=== PATIENT | male | born 1955 | race African-American/Black ===

== ENCOUNTER → 2016-11-24 | Outpatient (CLI) | payer BC ==
[2016-11-24 10:37] LABS: ALANINE AMINOTRANSFERASE 34 U/L (21-72); ALBUMIN 4.8 g/dL (3.5-5.0); ALKALINE PHOSPHATASE 53 U/L (38-126); ASPARTATE AMINO TRANSFERASE 29 U/L (17-59); BILIRUBIN,DIRECT 0.1 mg/dL (0.0-0.4); BILIRUBIN,TOTAL 0.8 mg/dL (0.2-1.3); CHOLESTEROL 159.91 mg/dL (0-200); Direct HDL 42 mg/dL (>40); TOTAL PROTEIN 7.5 g/dL (6.3-8.2); TRIGLYCERIDES 227 mg/dL (<150)
[2016-11-24 10:48] LABS: DIRECT LDL 56 mg/dL (<100)
[2016-11-24 10:52] LABS: VLDL CHOLESTEROL 45.4 mg/dL (10-31)
== END ==
LOC: OD 09:10
PROVIDERS: ATTEND Internal Medicine Cardiovascular Disease
DX: E78.2 Mixed hyperlipidemia (principal); Z79.899 Other long term (current) drug therapy
CPT/HCPCS: 36415; 80061; 80076

== ENCOUNTER → 2017-05-27 | Outpatient (CLI) | payer BC ==
[2017-05-27 09:05] LABS: ALANINE AMINOTRANSFERASE 33 U/L (21-72); ALBUMIN 4.5 g/dL (3.5-5.0); ALKALINE PHOSPHATASE 53 U/L (38-126); ANION GAP 11 (5-19); ASPARTATE AMINO TRANSFERASE 25 U/L (17-59); BILIRUBIN,DIRECT 0.3 mg/dL (0.0-0.4); BILIRUBIN,TOTAL 0.8 mg/dL (0.2-1.3); BLOOD UREA NITROGEN 18 mg/dL (7-20); CALCIUM 10.3 mg/dL (8.4-10.2); CARBON DIOXIDE 29 mmol/L (22-30); CHLORIDE 100 mmol/L (98-107); CHOLESTEROL 183.49 mg/dL (0-200); CREATININE RESULT 1.14 mg/dL (0.52-1.25); Direct HDL 39 mg/dL (>40); GLUCOSE 98 mg/dL (75-110); POTASSIUM 4.5 mmol/L (3.6-5.0); SODIUM 140.3 mmol/L (137-145); TOTAL PROTEIN 7.2 g/dL (6.3-8.2); TRIGLYCERIDES 358 mg/dL (<150)
[2017-05-27 09:16] LABS: DIRECT LDL 44 mg/dL (<100)
[2017-05-27 09:19] LABS: VLDL CHOLESTEROL 71.6 mg/dL (10-31)
== END ==
LOC: OD 08:04
PROVIDERS: ATTEND Internal Medicine Cardiovascular Disease
DX: E78.2 Mixed hyperlipidemia (principal); Z79.899 Other long term (current) drug therapy
CPT/HCPCS: 36415; 80048; 80061; 80076

== ENCOUNTER → 2017-06-10 | Outpatient (CLI) | payer BC ==
--- NOTE | 2017-06-10 09:01 | EKG REPORT ---
SEVERITY:- ABNORMAL ECG - SINUS RHYTHM LVH WITH IVCD, LAD AND SECONDARY REPOL ABNRM : Confirmed by: Tangela Denton MD 10-Jun-2017 08:59:54
== END ==
LOC: OD 08:08
PROVIDERS: ATTEND Internal Medicine Cardiovascular Disease
DX: I10 Essential (primary) hypertension (principal)
CPT/HCPCS: 93005; 93010

== ENCOUNTER → 2017-10-26 | Outpatient (CLI) | payer BC ==
[2017-10-26 08:56] LABS: ANION GAP 11 (5-19); BLOOD UREA NITROGEN 21 mg/dL (7-20); CALCIUM 10.3 mg/dL (8.4-10.2); CARBON DIOXIDE 28 mmol/L (22-30); CHLORIDE 103 mmol/L (98-107); CHOLESTEROL 133.42 mg/dL (0-200); GLUCOSE 99 mg/dL (75-110); POTASSIUM 4.7 mmol/L (3.6-5.0); TRIGLYCERIDES 103 mg/dL (<150)
[2017-10-26 09:07] LABS: DIRECT LDL 54 mg/dL (<100)
== END ==
LOC: OD 08:11
PROVIDERS: ATTEND Internal Medicine Cardiovascular Disease
DX: E78.2 Mixed hyperlipidemia (principal); I10 Essential (primary) hypertension; R00.2 Palpitations
CPT/HCPCS: 36415; 80048; 80061

== ENCOUNTER → 2017-11-25 | Outpatient (CLI) | payer BC ==
[2017-11-25 09:46] LABS: ANION GAP 10 (5-19); BLOOD UREA NITROGEN 20 mg/dL (7-20); CARBON DIOXIDE 27 mmol/L (22-30); CHLORIDE 105 mmol/L (98-107); GLUCOSE 99 mg/dL (75-110); POTASSIUM 4.5 mmol/L (3.6-5.0); SODIUM 142.2 mmol/L (137-145)
== END ==
LOC: OD 08:18
PROVIDERS: ATTEND Internal Medicine Cardiovascular Disease
DX: I10 Essential (primary) hypertension (principal); E83.52 Hypercalcemia
CPT/HCPCS: 36415; 80048

== ENCOUNTER → 2017-12-07 | Outpatient (CLI) | payer BC ==
--- NOTE | 2017-12-08 19:12 | XCELERA REPORT ---
[address] [address] Transthoracic Echocardiogram Report Name: JOAQUIM CORTEZ Age: 62 yrs Gender: Male : 1955 Patient Status: Outpatient Patient Location: Study Date: 12/07/2017 02:03 PM Height: 68 in Weight: 156 lb BSA: 1.8 m2 Reason For Study: HOCM Ordering Physician: DEWEY SHERMAN Performed By: Suzy Leary Interpretation Summary Normal AV. Normal MV except mild MAC, and mild MR with no MVP/no MS. Asynmetric septal hypertrophy,( IVS 18/PW11) with LVEF 72%, and stage I LVDD with no RWMA, and no LVOT gradient, ie no oulet obstruction RH poorly seen Mild TR with RVSP about 32 mmHg, borderline elevated. MMode/2D Measurements & Calculations RVDd: 2.4 cm LVIDd: 4.5 cm FS: 45.1 % Ao root diam: IVSd: 1.1 cm LVIDs: 2.5 cm EDV(Teich): 2.6 cm LVPWd: 0.85 cm 93.4 ml Ao root area: ESV(Teich): 21.9 ml 5.1 cm2 EF(Teich): LA dimension: 76.5 % 2.8 cm LVLd ap4: 9.7 cm SV(MOD-sp4): 82.0 ml LA A2Cs: LA A4Cs: 16.0 cm2 EDV(MOD-sp4): 16.2 cm2 117.0 ml LVLs ap4: 7.3 cm ESV(MOD-sp4): 35.0 ml EF(MOD-sp4): 70.1 % LA length: 5.0 cm LA Vol Index (BP): LA Volume: 23.8 ml/m2 43.8 ml Doppler Measurements & Calculations MV E max barrett: MV P1/2t max barrett: Ao V2 max: LV V1 max P.2 cm/sec 61.7 cm/sec 140.7 cm/sec 6.1 mmHg MV A max barrett: MV P1/2t: 98.3 msec Ao max PG: LV V1 max: 66.6 cm/sec 7.9 mmHg 123.9 cm/sec MV E/A: 0.93 MVA(P1/2t): 2.2 cm2 MV dec slope: 183.9 cm/sec2 PA V2 max: PI end-d barrett: TR max barrett: 109.1 cm/sec 88.2 cm/sec 266.0 cm/sec PA max PG: TR max P.8 mmHg 28.3 mmHg Left Ventricle There is moderate asymmetric left ventricular hypertrophy. The echo findings are consistent with hypertrophic cardiomyopathy. IVS 17-18mm, PW 11 mm. The left ventricular ejection fraction is normal. Doppler measurements suggest impaired left ventricular relaxation, which is associated with grade I/IV or mild diastolic dysfunction. No regional wall motion abnormalities noted. There is no thrombus. Right Ventricle The right ventricle is normal size. Atria The right atrium is normal in size. The left atrial size is normal. Mitral Valve The mitral valve leaflets appear normal. There is no evidence of stenosis, fluttering, or prolapse. There is mild mitral annular calcification. There is no evidence of mitral valve prolapse. There is no mitral valve stenosis. There is a mild amount of mitral regurgitation. Aortic Valve The aortic valve is normal in structure and functions normally. The aortic valve is trileaflet. The aortic valve opens well. There is no aortic valvular vegetation. There is no aortic valve stenosis. No aortic regurgitation is present. Tricuspid Valve The tricuspid is normal in structure and function. There is a mild amount of tricuspid regurgitation. Right ventricular systolic pressure is estimated to be within upper limit of normal. Best estimated RVSP is approximately 32 mm/Hg. Pulmonic Valve The pulmonic valve is not well visualized. There is a mild amount of pulmonic regurgitation. Great Vessels The aortic root is normal size. Effusions There is no pericardial effusion. I WMSI = 1.00 % Normal = 100 Segments Size X - Cannot 1 - Normal 2 - 3 - Akinetic4 - 1-2 small Interpret Hypokinetic Dyskinetic 3-5 moderate 5 - 6-14 large Aneurysmal 15-16 diffuse : DEWEY SHERMAN > Dewey Sherman
== END ==
LOC: SP 13:32
PROVIDERS: ATTEND Internal Medicine Cardiovascular Disease
DX: I42.1 Obstructive hypertrophic cardiomyopathy (principal)
CPT/HCPCS: 93306

== ENCOUNTER 2018-09-28 17:42 | Emergency (ER) | payer BC ==
--- NOTE | 2018-09-28 19:28 | ER Document Report ---
ED Medical Screen (RME) - General Chief Complaint: Near Syncope Stated Complaint: SYNCOPAL EPISODE Time Seen by Provider: 09/28/18 19:16 Primary Care Provider: DEWEY GOMEZ MD [Primary Care Provider] - Follow up as needed Mode of Arrival: Ambulatory Information source: Patient Notes: This is a 63-year-old man with a history of hypertension and has a recent episode of cough, sinus congestion, URI symptoms. He was treated with an antibiotic and prednisone and developed intractable hiccups. He was given a muscle relaxer and a medicine for hiccups (they do not know the name of the medicines). Patient states he filled the medicine today. He states that after taking the medicines, he was weak and felt faint. His brother had a helped him to the bathroom and while he was urinating he had a syncopal episode. The patient is accompanied by his mother states that after taking the medicine he seemed a little confused and very weak. Patient presents after the syncopal episode. He was brought in by EMS. TRAVEL OUTSIDE OF THE [place] IN LAST 30 DAYS: No - Related Data Allergies/Adverse Reactions: prednisone [Prednisone] Allergy (Severe, Verified 09/28/18 17:43) Hiccups gemfibrozil [From Lopid] Allergy (Verified 09/28/18 17:43) Past Medical History - Social History Frequency of alcohol use: None - Past Medical History Cardiac Medical History: Reports: Hx Hypertension Denies: Hx Coronary Artery Disease, Hx Heart Attack Pulmonary Medical History: Reports: Hx Bronchitis Denies: Hx Asthma, Hx COPD, Hx Pneumonia Neurological Medical History: Denies: Hx Cerebrovascular Accident, Hx Seizures Renal/ Medical History: Denies: Hx Peritoneal Dialysis Musculoskeltal Medical History: Reports Hx Arthritis Past Surgical History: Reports: Hx Abdominal Surgery - hernia as an , Hx Herniorrhaphy - AN INFANT - Immunizations Hx Diphtheria, Pertussis, Tetanus Vaccination: Yes - 2011 Physical Exam - Vital signs Vitals: Temp Pulse Resp BP Pulse Ox 97.5 F 63 16 108/55 L 96 09/28/18 17:51 09/28/18 17:51 09/28/18 17:51 09/28/18 17:51 09/28/18 17:51 Course - Vital Signs Vital signs: Temp Pulse Resp BP Pulse Ox 97.5 F 63 16 108/55 L 96 09/28/18 17:51 09/28/18 17:51 09/28/18 17:51 09/28/18 17:51 09/28/18 17:51 Doctor's Discharge - Discharge Referrals: DEWEY GOMEZ MD [Primary Care Provider] - Follow up as needed
--- NOTE | 2018-09-28 19:45 | EKG REPORT ---
SEVERITY:- ABNORMAL ECG - SINUS RHYTHM PROBABLE LEFT ATRIAL ABNORMALITY LVH WITH IVCD, LAD AND SECONDARY REPOL ABNRM : Confirmed by: Tangela Denton MD 28-Sep-2018 19:44:46
--- NOTE | 2018-09-28 19:57 | RADIOLOGY REPORT (SQ) ---
EXAM DESCRIPTION: CHEST SINGLE VIEW COMPLETED DATE/TIME: 09/28/2018 7:46 pm REASON FOR STUDY: syncope COMPARISON: None. EXAM PARAMETERS: NUMBER OF VIEWS: One view. TECHNIQUE: Single frontal radiographic view of the chest acquired. RADIATION DOSE: NA LIMITATIONS: None. FINDINGS: LUNGS AND PLEURA: No opacities, masses or pneumothorax. No pleural effusion. MEDIASTINUM AND HILAR STRUCTURES: No masses. Contour normal. HEART AND VASCULAR STRUCTURES: Heart normal in size. Normal vasculature. BONES: No acute findings. HARDWARE: None in the chest. OTHER: No other significant finding. IMPRESSION: NO ACUTE RADIOGRAPHIC FINDING IN THE CHEST. TECHNICAL DOCUMENTATION: JOB ID: [id number] [employer]- All Rights Reserved Reading location - IP/workstation name: [email or web address]
[2018-09-28 20:42] LABS: ABSOLUTE BASOPHILS # (AUTO) 0.1 10^3/uL (0.0-0.2); ABSOLUTE LYMPHOCYTES (AUTO) 2.2 10^3/uL (0.5-4.7); ABSOLUTE NEUT (AUTO) 9.7 10^3/uL (1.7-8.2); BASOPHILS % (AUTO) 0.7 % (0-2); EOSINOPHILS % (AUTO) 0.2 % (0-6); HEMATOCRIT 40.1 % (37.9-51.0); HEMOGLOBIN 13.3 g/dL (13.5-17.0); LYMPHOCYTES % (AUTO) 17.2 % (13-45); MEAN CORPUSCULAR HEMOGLOBIN 29.3 pg (27.0-33.4); MEAN CORPUSCULAR HGB CONC 33.2 g/dL (32.0-36.0); MEAN CORPUSCULAR VOLUME 88 fl (80-97); MONOCYTES % (AUTO) 7.9 % (3-13); PLATELET COUNT 202 10^3/uL (150-450); RED BLOOD COUNT 4.55 10^6/uL (4.35-5.55); RED CELL DISTRIBUTION WIDTH 13.6 % (11.5-14.0); TOTAL CELLS COUNTED % (AUTO) 100 %; WHITE BLOOD COUNT 13.1 10^3/uL (4.0-10.5)
[2018-09-28 21:01] LABS: ALANINE AMINOTRANSFERASE 23 U/L (21-72); ALBUMIN 4.1 g/dL (3.5-5.0); ALKALINE PHOSPHATASE 39 U/L (38-126); ANION GAP 6 (5-19); ASPARTATE AMINO TRANSFERASE 19 U/L (17-59); BILIRUBIN,DIRECT 0.2 mg/dL (0.0-0.4); BILIRUBIN,TOTAL 0.5 mg/dL (0.2-1.3); BLOOD UREA NITROGEN 26 mg/dL (7-20); CALCIUM 9.6 mg/dL (8.4-10.2); CARBON DIOXIDE 31 mmol/L (22-30); CHLORIDE 99 mmol/L (98-107); GLUCOSE 99 mg/dL (75-110); POTASSIUM 4.1 mmol/L (3.6-5.0); SODIUM 136.3 mmol/L (137-145); TOTAL PROTEIN 6.5 g/dL (6.3-8.2)
--- NOTE | 2018-09-28 23:09 | ER Document Report ---
ED Syncope and Near Syncope - General Chief Complaint: Near Syncope Stated Complaint: SYNCOPAL EPISODE Time Seen by Provider: 09/28/18 23:08 Primary Care Provider: DEWEY GOMEZ MD [EMERITUS] - Follow up as needed Mode of Arrival: Ambulatory Notes: Patient is a 63-year-old man with no significant past medical history who presents after one episode of near syncope earlier today. Patient reports that he has had congestion and hiccups since last week, presented to his primary doctor today and was prescribed Thorazine for hiccups, took the first dose when he got home. A short time later he stood and felt lightheaded, was helped to the bathroom by his brother so he could urinate, while doing this he felt dizzy and fell to the ground but did not completely pass out. Patient reports that t his episode lasted for a few seconds and he felt back to his normal self, however he was still "woozy." Currently the patient has no complaints and feels to be at his normal self. He denies fevers or chills, no cough or congestion currently, no nausea or vomiting, no chest pain. TRAVEL OUTSIDE OF THE [place] IN LAST 30 DAYS: No - HPI Patient complains to provider of: Nearly fainting Episode witnessed (by whom): Yes Symptoms prior to episode: Dizziness, Lightheaded Position/Activity at time of episode: Standing Quality of pain: No pain Severity: Mild Pain Level: Denies Context: [place] faint Injury location: None Current symptoms: None/feels back to normal Similar symptoms previously: No Recently seen / treated by doctor: No - Related Data Allergies/Adverse Reactions: prednisone [Prednisone] Allergy (Severe, Verified 09/28/18 17:43) Hiccups gemfibrozil [From Lopid] Allergy (Verified 09/28/18 17:43) Past Medical History - General Information source: Patient, Relative - Social History Smoking Status: Current Some Day Smoker Chew tobacco use (# tins/day): No Frequency of alcohol use: None Drug Abuse: None Lives with: Family Family History: Reviewed & Not Pertinent Patient has suicidal ideation: No Patient has homicidal ideation: No - Past Medical History Cardiac Medical History: Reports: Hx Hypertension Denies: Hx Coronary Artery Disease, Hx Heart Attack Pulmonary Medical History: Reports: Hx Bronchitis Denies: Hx Asthma, Hx COPD, Hx Pneumonia EENT Medical History: Reports: None Neurological Medical History: Reports: None. Denies: Hx Cerebrovascular Accident, Hx Seizures Endocrine Medical History: Reports: None Renal/ Medical History: Reports: None. Denies: Hx Peritoneal Dialysis Malignancy Medical History: Reports None GI Medical History: Reports: None Musculoskeletal Medical History: Reports Hx Arthritis Skin Medical History: Reports None Psychiatric Medical History: Reports: None Traumatic Medical History: Reports: None Infectious Medical History: Reports: None Past Surgical History: Reports: Hx Abdominal Surgery - hernia as an , Hx Herniorrhaphy - AN INFANT - Immunizations Immunizations up to date: Yes Hx Diphtheria, Pertussis, Tetanus Vaccination: Yes - 2011 Review of Systems - Review of Systems Constitutional: No symptoms reported EENT: No symptoms reported Cardiovascular: No symptoms reported Respiratory: No symptoms reported Gastrointestinal: No symptoms reported Genitourinary: No symptoms reported Male Genitourinary: No symptoms reported Musculoskeletal: No symptoms reported Skin: No symptoms reported Hematologic/Lymphatic: No symptoms reported Neurological/Psychological: See HPI, Lost consciousness -: Yes All other systems reviewed and negative Physical Exam - Vital signs Vitals: Temp Pulse Resp BP Pulse Ox 97.5 F 63 16 108/55 L 96 09/28/18 17:51 09/28/18 17:51 09/28/18 17:51 09/28/18 17:51 09/28/18 17:51 Interpretation: Normal - Notes Notes: Well-appearing in no acute distress - General General appearance: Appears well, Alert - HEENT Head: Normocephalic, Atraumatic Eyes: Normal Pupils: PERRL - Respiratory Respiratory status: No respiratory distress Chest status: Nontender Breath sounds: Normal Chest palpation: Normal - Cardiovascular Rhythm: Regular Heart sounds: Normal auscultation Murmur: No - Abdominal Inspection: Normal Distension: No distension Bowel sounds: Normal Tenderness: Nontender Organomegaly: No organomegaly - Rectal Notes: Deferred - Genitourinary Notes: Deferred - Back Back: Normal, Nontender - Extremities General upper extremity: Normal inspection, Nontender, Normal color, Normal ROM, Normal temperature General lower extremity: Normal inspection, Nontender, Normal color, Normal ROM, Normal temperature, Normal weight bearing. No: Miguelito's sign - Neurological Neuro grossly intact: Yes Cognition: Normal Orientation: AAOx4 [place] Coma Scale Eye Opening: Spontaneous [place] Coma Scale Verbal: Oriented Ari Coma Scale Motor: Obeys Commands Ari Coma Scale Total: 15 Speech: Normal Motor strength normal: LUE, RUE, LLE, RLE Sensory: Normal - Psychological Associated symptoms: Normal affect, Normal mood - Skin Skin Temperature: Warm Skin Moisture: Dry Skin Color: Normal Course - Re-evaluation Re-evalutation: 09/29/18 00:02 Labs and urinalysis are normal, head CT is negative. Patient is nonfocal and has a normal appearance on exam. Most likely the patient had a vagal response t hat was exacerbated by his use of Thorazine for the first time. Patient was cautioned to use the medication only as needed and to not mix the medication with any other new substances including alcohol. Patient will be discharged home with return precautions and follow-up. Both the patient and his family members at bedside voices understanding and agreeing with the plan. - Vital Signs Vital signs: Temp Pulse Resp BP Pulse Ox 97.5 F 63 17 124/78 99 09/28/18 17:51 09/28/18 17:51 09/29/18 00:01 09/29/18 00:01 09/29/18 00:01 - Laboratory Result Diagrams: 09/28/18 20:32 09/28/18 20:32 Laboratory results interpreted by me: 09/28/18 09/28/18 20:32 20:32 WBC 13.1 H Hgb 13.3 L Absolute Neutrophils 9.7 H Sodium 136.3 L Carbon Dioxide 31 H BUN 26 H Creatinine 1.31 H Est GFR (Non-Af Amer) 55 L - Diagnostic Test Radiology reviewed: Image reviewed, Reports reviewed - EKG Interpretation by Ak EKG shows normal: Sinus rhythm Rate: Normal Rhythm: NSR [place]/QRS: LBBB Voltage: No: Increased voltage, Consistant with LVH, Decreased voltage, Throu ghout, Limb leads Heart block present: No: 1st Degree, Mobitz 1, Mobitz 2, CHB (3rd degree block) When compared to previous EKG there are: No significant change Discharge - Discharge Clinical Impression: Vasovagal near syncope Condition: Good Disposition: HOME, SELF-CARE Instructions: Near Syncopal Episode ([facility]) Additional Instructions: Please follow-up with your regular physician as needed. Return to the hospital if you experience confusion, weakness, vision changes, chest pain, or have any other concerning symptom. Referrals: DEWEY GOMEZ MD [EMERITUS] - Follow up as needed Print Language: Wolof
[2018-09-29 00:37] VITALS: BP 124/78
== END 2018-09-29 01:52 | disposition home or self-care (01) ==
LOC: ER 17:42
DX: R55 Syncope and collapse (principal); R42 Dizziness and giddiness; F17.200 Nicotine dependence, unspecified, uncomplicated; I10 Essential (primary) hypertension
CPT/HCPCS: 36415; 71045; 80053; 85025; 93005; 93010; 99284

== ENCOUNTER → 2019-03-17 | Outpatient (CLI) | payer BC ==
[2019-03-17 09:17] LABS: CHOLESTEROL 139.87 mg/dL (0-200); TRIGLYCERIDES 154 mg/dL (<150)
[2019-03-17 09:19] LABS: ALANINE AMINOTRANSFERASE 35 U/L (21-72); ALBUMIN 4.3 g/dL (3.5-5.0); ALKALINE PHOSPHATASE 46 U/L (38-126); ANION GAP 9 (5-19); ASPARTATE AMINO TRANSFERASE 34 U/L (17-59); BILIRUBIN,DIRECT 0.2 mg/dL (0.0-0.4); BILIRUBIN,TOTAL 0.6 mg/dL (0.2-1.3); BLOOD UREA NITROGEN 26 mg/dL (7-20); CALCIUM 9.9 mg/dL (8.4-10.2); CARBON DIOXIDE 28 mmol/L (22-30); CHLORIDE 103 mmol/L (98-107); GLUCOSE 97 mg/dL (75-110); POTASSIUM 4.7 mmol/L (3.6-5.0); SODIUM 139.9 mmol/L (137-145); TOTAL PROTEIN 6.8 g/dL (6.3-8.2)
[2019-03-17 09:27] LABS: DIRECT LDL 65 mg/dL (<100)
[2019-03-17 09:33] LABS: VLDL CHOLESTEROL 30.8 mg/dL (10-31)
== END ==
LOC: OD 08:05
PROVIDERS: ATTEND Internal Medicine Cardiovascular Disease
DX: E78.2 Mixed hyperlipidemia (principal); I10 Essential (primary) hypertension; Z79.899 Other long term (current) drug therapy
CPT/HCPCS: 36415; 80048; 80061; 80076

== ENCOUNTER → 2019-06-16 | Outpatient (CLI) | payer BC ==
[2019-06-16 09:23] LABS: ALBUMIN 4.4 g/dL (3.5-5.0); ALKALINE PHOSPHATASE 45 U/L (38-126); ANION GAP 9 (5-19); ASPARTATE AMINO TRANSFERASE 36 U/L (17-59); BILIRUBIN,DIRECT 0.2 mg/dL (0.0-0.4); BILIRUBIN,TOTAL 0.4 mg/dL (0.2-1.3); BLOOD UREA NITROGEN 28 mg/dL (7-20); CARBON DIOXIDE 28 mmol/L (22-30); CHLORIDE 101 mmol/L (98-107); CHOLESTEROL 138.63 mg/dL (0-200); GLUCOSE 101 mg/dL (75-110); POTASSIUM 4.5 mmol/L (3.6-5.0); TOTAL PROTEIN 7.1 g/dL (6.3-8.2); TRIGLYCERIDES 116 mg/dL (<150)
[2019-06-16 09:34] LABS: DIRECT LDL 67 mg/dL (<100)
== END ==
LOC: OD 08:00
PROVIDERS: ATTEND Physician Assistant
DX: I10 Essential (primary) hypertension (principal); E78.2 Mixed hyperlipidemia; Z79.899 Other long term (current) drug therapy
CPT/HCPCS: 36415; 80048; 80061; 80076

== ENCOUNTER → 2019-09-23 | Outpatient (CLI) | payer BC ==
--- NOTE | 2019-09-23 21:33 | EKG REPORT ---
SEVERITY:- ABNORMAL ECG - SINUS RHYTHM MULTIPLE VENTRICULAR PREMATURE COMPLEXES MULT INTERPOLATED VENT PREMATURE COMPLEXES LEFT ATRIAL ABNORMALITY LVH WITH SECONDARY REPOLARIZATION ABNORMALITY ABNORMAL T, PROBABLE ISCHEMIA, LATERAL LEADS : Confirmed by: Tangela Denton MD 23-Sep-2019 21:32:54
== END ==
LOC: OD 10:22
PROVIDERS: ATTEND Physician Assistant
DX: R07.9 Chest pain, unspecified (principal)
CPT/HCPCS: 93005; 93010

== ENCOUNTER → 2019-10-06 | Outpatient (CLI) | payer BC ==
--- NOTE | 2019-10-06 19:57 | XCELERA REPORT ---
[address] [address] Transthoracic Echocardiogram Report Name: JOAQUIM CORTEZ Age: 64 yrs Gender: Male : 1955 Patient Status: Outpatient Patient Location: SP Study Date: 10/06/2019 02:00 PM Height: 68 in Weight: 160 lb BSA: 1.9 m2 Reason For Study: CP Ordering Physician: DEWEY SHERMAN Performed By: Juan Whitmore Interpretation Summary Multiple PVCs during acquisition. Poor quality study, measurements made in the wrong part of cardiac cycle. (student) Minimal posterior pericardial effusion. AV is 3 cusps, min sclerosis, no , no AR. Mild Mitral annular calcification, no MVP, no MS, mod MR with normal LA size by M-mode, no Biplane LA measured,. Mod concentric LVH IVS>17mm, PW>13 mm. no LV enlargement, LVEF 65-70% (visual) with LV diastolic dysfunction, and segmental wall motion abnormalities noted as in pictorals =inferior wall. RV poorly seen trace TR with no pulm hypertension, RVSP 30mm Hg. Trace NH. No ASD. MMode/2D Measurements & Calculations RVDd: 2.9 cm LVIDd: 4.8 cm FS: 41.1 % Ao root diam: 3.0 cm IVSd: 1.1 cm LVIDs: 2.8 cm EDV(Teich): 105.3 ml LVPWd: 0.93 cm ESV(Teich): 29.6 ml Ao root area: 6.9 cm2 LA dimension: 3.8 cm EF(Teich): 71.9 % Doppler Measurements & Calculations Ao V2 max: LV V1 max PG: PA V2 max: PI end-d barrett: 109.7 cm/sec 5.0 mmHg 81.9 cm/sec 99.1 cm/sec Ao max P.8 mmHg LV V1 max: PA max P.3 cm/sec 2.7 mmHg LV dP/dt: 1010 mmHg/s TR max barrett: 257.4 cm/sec TR max P.5 mmHg I WMSI = 1.38 % Normal = 75 Segments Size X - Cannot 2 - 4 - 1-2 small Interpret 1 - Normal Hypokinetic 3 - AkineticDyskinetic 3-5 moderate 5 - 6-14 large Aneurysmal 15-16 diffuse : JASON, Dewey Cardona
== END ==
LOC: SP 13:38
PROVIDERS: ATTEND Internal Medicine Cardiovascular Disease
DX: R07.89 Other chest pain (principal); I10 Essential (primary) hypertension
CPT/HCPCS: 93306

== ENCOUNTER → 2019-12-16 | Outpatient (CLI) | payer BC ==
[2019-12-16 08:57] LABS: ALBUMIN 4.5 g/dL (3.5-5.0); ALKALINE PHOSPHATASE 46 U/L (38-126); ANION GAP 5 (5-19); ASPARTATE AMINO TRANSFERASE 22 U/L (17-59); BILIRUBIN,DIRECT 0.2 mg/dL (0.0-0.4); BILIRUBIN,TOTAL 0.3 mg/dL (0.2-1.3); BLOOD UREA NITROGEN 12 mg/dL (7-20); CALCIUM 9.9 mg/dL (8.4-10.2); CARBON DIOXIDE 30 mmol/L (22-30); CHLORIDE 100 mmol/L (98-107); CHOLESTEROL 155.84 mg/dL (0-200); GLUCOSE 105 mg/dL (75-110); POTASSIUM 4.6 mmol/L (3.6-5.0); TOTAL PROTEIN 7.1 g/dL (6.3-8.2); TRIGLYCERIDES 238 mg/dL (<150)
[2019-12-16 09:08] LABS: DIRECT LDL 69 mg/dL (<100)
[2019-12-16 09:12] LABS: VLDL CHOLESTEROL 47.6 mg/dL (10-31)
== END ==
LOC: OD 08:06
PROVIDERS: ATTEND Physician Assistant
DX: E78.2 Mixed hyperlipidemia (principal); I10 Essential (primary) hypertension; Z79.899 Other long term (current) drug therapy
CPT/HCPCS: 36415; 80048; 80061; 80076

== ENCOUNTER → 2020-05-10 | Outpatient (CLI) | payer MEDICARE, BC ==
[2020-05-10 09:14] LABS: ALBUMIN 4.3 g/dL (3.5-5.0); ALKALINE PHOSPHATASE 43 U/L (38-126); ANION GAP 10 (5-19); ASPARTATE AMINO TRANSFERASE 36 U/L (17-59); BILIRUBIN,DIRECT 0.3 mg/dL (0.0-0.4); BILIRUBIN,TOTAL 0.8 mg/dL (0.2-1.3); BLOOD UREA NITROGEN 21 mg/dL (7-20); CALCIUM 9.7 mg/dL (8.4-10.2); CARBON DIOXIDE 27 mmol/L (22-30); CHLORIDE 102 mmol/L (98-107); GLUCOSE 100 mg/dL (75-110); POTASSIUM 4.3 mmol/L (3.6-5.0); TOTAL PROTEIN 6.7 g/dL (6.3-8.2); TRIGLYCERIDES 146 mg/dL (<150)
[2020-05-10 09:24] LABS: DIRECT LDL 75 mg/dL (<100)
== END ==
LOC: OD 07:49
PROVIDERS: ATTEND Physician Assistant
DX: I10 Essential (primary) hypertension (principal); E78.2 Mixed hyperlipidemia; Z79.899 Other long term (current) drug therapy
CPT/HCPCS: 36415; 80048; 80061; 80076

== ENCOUNTER → 2020-07-23 | Outpatient (CLI) | payer BC, MEDICARE ==
[2020-07-23 09:12] LABS: ANION GAP 9 (5-19); BLOOD UREA NITROGEN 22 mg/dL (7-20); CALCIUM 10.1 mg/dL (8.4-10.2); CARBON DIOXIDE 29 mmol/L (22-30); CHLORIDE 101 mmol/L (98-107); GLUCOSE 111 mg/dL (75-110); POTASSIUM 4.5 mmol/L (3.6-5.0)
== END ==
LOC: OD 07:46
PROVIDERS: ATTEND Physician Assistant
DX: I49.3 Ventricular premature depolarization (principal)
CPT/HCPCS: 36415; 80048; 83735; 84443